=== PATIENT | male | born 1975 | race Caucasian/White ===

== ENCOUNTER 2022-02-06 09:24 | Day surgery (SDC) | payer BC, OTHER ==
[~2022-02-06 09:24] MED LIST: Lactated Ringers 1,000 ML IV SCH; Lidocaine 2% 5 ML SDV ONE; fentaNYL 100 MCG/2 ML SDV ONE
[2022-02-06] MEDS ORDERED: Lactated Ringers 1,000 ML IV SCH ×2 (10:00→11:45)
[2022-02-06] MEDS ORDERED: propofoL 50 ML ONE (10:09)
[2022-02-06] MEDS ORDERED: Propofol 200 MG/20 ML SDV ONE ×2 (11:00→11:05)
== END 2022-02-06 12:40 | disposition home or self-care (01) ==
LOC: MW.SDS 09:24
PROVIDERS: ATTEND Surgery
DX: D12.2 Benign neoplasm of ascending colon (principal); D12.4 Benign neoplasm of descending colon; K57.30 Diverticulosis of large intestine without perforation or abscess without bleeding; E78.00 Pure hypercholesterolemia, unspecified; I10 Essential (primary) hypertension; K21.9 Gastro-esophageal reflux disease without esophagitis; E66.9 Obesity, unspecified; Z68.30 Body mass index [BMI] 30.0-30.9, adult; Z91.030 Bee allergy status; Z91.018 Allergy to other foods; Z89.022 Acquired absence of left finger(s); Z86.16 Personal history of COVID-19; Z87.891 Personal history of nicotine dependence; Z79.899 Other long term (current) drug therapy; Z80.0 Family history of malignant neoplasm of digestive organs
CPT/HCPCS: 00811; J2704; J3010; J7120